=== PATIENT | female | born 1935 | race African-American/Black ===

== ENCOUNTER 2024-01-15 21:22 | Emergency (ER) | payer OTHER ==
[~2024-01-15] VITALS: Ht 149.9 cm; Wt 49.8 kg
[2024-01-15 22:17] VITALS: O2SAT 97
[2024-01-15] MEDS: ACETAMINOPHEN 500MG TABLET PO ONE (22:57)
[2024-01-15] MEDS ORDERED: TOPUD MT (23:26)
[2024-01-15 23:52] VITALS: BP 98/60; PULSE 98; RESP 15; TEMP 98.5
== END 2024-01-15 23:52 | disposition home or self-care (01) ==
LOC: ER 21:22
DX: S20.221A Contusion of right back wall of thorax, initial encounter (principal); W10.8XXA Fall (on) (from) other stairs and steps, initial encounter; Y93.89 Activity, other specified; Y92.89 Other specified places as the place of occurrence of the external cause; Y99.8 Other external cause status
CPT/HCPCS: 71045; 73030; 99284